=== PATIENT | male | born 1970 | race Caucasian/White ===

== ENCOUNTER 2023-10-16 22:13 | Emergency (ER) | payer BC ==
[~2023-10-16] VITALS: Ht 177.8 cm; Wt 104.0 kg
--- OUTSIDE RECORDS SUMMARY | 2023-10-16 22:15 | XMS ---
PreManage Notification: MANJIT MENDOZA Security Bricklayer Tender Events No recent Security Events currently on file CRITERIA MET - PDMP CARE PROVIDERS -, [place]- Dentist: Patent [employer] Specialist [facility] PHONE: [phone] Jake has no Care Guidelines for this patient. E.DTom VISIT COUNT (12 MO.) 1 ALFONSO Escobar TOTAL 1 NOTE: Visits indicate total known visits. ED/UCC VISIT TRACKING (12 MO.) 10/16/2023 22:13 ALFONSO Krueger OR TYPE: Emergency COMPLAINT: - VISION PROBLEM INPATIENT VISIT TRACKING (12 MO.) No inpatient visits to display in this time frame [id number]
[2023-10-16] MEDS ORDERED: JANUVIA50 MG PO (22:31)
[2023-10-16] MEDS ORDERED: AMLODIPINE BESYL5 MG PO (22:32)
[2023-10-16] MEDS ORDERED: FENOFIBRATE160 MG PO (22:32)
[2023-10-16] MEDS ORDERED: TRULICITY3 MG/0.5 M SQ (22:32)
[2023-10-16] MEDS ORDERED: ATENOLOL100 MG PO (22:32)
[2023-10-16] MEDS ORDERED: CYCLOBENZAPRINE5 MG PO (22:33)
[2023-10-16] MEDS ORDERED: GLIPIZIDE10 MG PO (22:33)
[2023-10-16] MEDS ORDERED: METFORMIN HCL750 MG PO (22:33)
[2023-10-16] MEDS ORDERED: PRAVASTATIN SOD10 MG PO (22:33)
[2023-10-16] MEDS ORDERED: GABAPENTIN300 MG PO (22:33)
[2023-10-16] MEDS ORDERED: LOSARTAN POTASS50 MG PO (22:33)
[2023-10-16] MEDS ORDERED: INDAPAMIDE1.25 MG PO (22:33)
[2023-10-16] MEDS ORDERED: SPIRONOLACTONE50 MG PO (22:34)
[2023-10-16 22:55] LABS: HEMOGLOBIN 14.4 g/dL (12.0-18.0)
[2023-10-16 22:57] LABS: BASOPHILS 0.6 % (0-2); EOSINOPHILS 1.6 % (0-6); HEMATOCRIT 43.1 % (35.0-50.0); LYMPHOCYTES 32.4 % (24-44); MCH 27.6 (27-36); MCHC 33.3 g/dl (30-36); MCV 82.9 fl (81-99); MONOCYTES 5.7 % (0-12); NEUTROPHILS 59.7 % (39-80); PLATELET COUNT 184 K/uL (140-440); RDW 13.9 (10.5-15.0)
[2023-10-16] MEDS ORDERED: ondansetron HCL 4 MG/2 ML VIAL IV ONE (23:00)
[2023-10-16 23:02] LABS: BILIRUBIN, URINE NEGATIVE (negative); BLOOD/HGB, URINE NEGATIVE (Negative); KETONE, URINE NEGATIVE (Negative); LEUK ESTERASE, URINE NEGATIVE (negative); NITRITE, URINE NEGATIVE (negative); PH, URINE 7.5 (5-7)
[2023-10-16 23:14] LABS: ALBUMIN 4.1 g/dL (3.4-5.0); ALBUMIN/GLOBULIN RATIO 1.08 (1.1-2.4); ALCOHOL, MEDICAL <3 ng/dL (<3); ALKALINE PHOSPHATASE 45 U/L (46-116); ALT (SGPT) 45 U/L (14-59); AST (SGOT) 27 U/L (15-37); BILIRUBIN, TOTAL 0.4 ng/dL (0.2-1.0); BUN/CREATININE RATIO 13.67 (6.0-28.6); CALCIUM 9.6 mg/dL (8.5-10.1); CARBON DIOXIDE 24 mmol/L (21-32); CHLORIDE 101 mmol/L (98-107); CREATININE, SERUM 1.17 mg/dL (0.70-1.30); GLOMERULAR FILTRATION RATE,EST 74 mL/min (>60); PROTEIN, TOTAL 7.9 g/dL (6.4-8.2); UREA NITROGEN 16 mg/dL (7-18)
[2023-10-16 23:16] LABS: AMPHETAMINES, URINE NEGATIVE (NEGATIVE); BARBITURATES, URINE NEGATIVE (NEGATIVE); BENZODIAZEPINE, URINE NEGATIVE (NEGATIVE); BUPRENORPHINE, URINE NEGATIVE (NEGATIVE); CANNABINOID, URINE POSITIVE (NEGATIVE); COCAINE, URINE NEGATIVE (NEGATIVE); ECSTASY, URINE NEGATIVE (NEGATIVE); FENTANYL, URINE NEGATIVE (NEGATIVE); METHADONE, URINE NEGATIVE (NEGATIVE); OPIATES, URINE NEGATIVE (NEGATIVE); OXYCODONE, URINE NEGATIVE (NEGATIVE); PHENCYCLIDINE, URINE NEGATIVE (NEGATIVE)
[2023-10-16] MEDS ORDERED: ACETAMINOPHEN 500 MG TAB PO ONE (23:45)
[2023-10-17 01:03] VITALS: BP 127/79
--- NOTE | 2023-10-17 13:27 | EKG ---
[facility] [address] [place], [place] [address] Signed Normal sinus rhythm Left anterior fascicular block Abnormal ECG No previous ECGs available Confirmed by Ava Leavitt MD ([id number]) on 10/17/2023 1:27:27 PM Electronically Signed By: AVA LEAVITT 10/17/23 1327 PATIENT NAME: MANJIT MENDOZA Electrocardiogram DATE OF : 66 PHYSICIAN: AVA LEAVITT REPORT #: [id number] REPORT IS CONFIDENTIAL AND NOT TO BE RELEASED WITHOUT AUTHORIZATION
== END 2023-10-17 01:03 | disposition home or self-care (01) ==
LOC: ED 22:13
PROVIDERS: Internal Medicine
DX: G43.109 Migraine with aura, not intractable, without status migrainosus (principal); I10 Essential (primary) hypertension; E11.9 Type 2 diabetes mellitus without complications; E78.5 Hyperlipidemia, unspecified; Z79.84 Long term (current) use of oral hypoglycemic drugs; Z79.899 Other long term (current) drug therapy; Z88.1 Allergy status to other antibiotic agents; Z88.8 Allergy status to other drugs, medicaments and biological substances
CPT/HCPCS: 36415; 70450; 70496; 70498; 71045; 80053; 80307; 81003; 84484; 85025; 93005; 93010; A9270; G0480; J2405; Q9967